=== PATIENT | female | born 2000 | race Caucasian/White ===

== ENCOUNTER 2020-12-01 01:16 | Emergency (ER) | payer MEDICAID, OTHER ==
[~2020-12-01] VITALS: Ht 162.6 cm; Wt 73.0 kg
--- NOTE | 2020-12-01 01:27 | NUR ---
MORENITA FROM [facility] ER FOR ABDOMINAL PAIN IN LLQ FOR PAST 3-4 DAYS PT STATES SHE HAS SMALL AMOUN OF BLOOD WHEN SHE URINATED. PT REPORTS FEELING BETTER IN LEFT LATERAL POSITION. G1, P0, AB0. LMP ATTACHED TO MONITORS. VSS. NADN. PT RESTING IN BED. BLANETS GIVEN. PT AMBULATED FROM [facility] TO [facility]. BED IN LOW POSITION, RAILS ENGAGED. CALL LIGHT ON LAP. WCTM
[2020-12-01] MEDS ORDERED: ACETAMINOPHEN 500 MG TABLET ONE (01:48)
[2020-12-01] MEDS ORDERED: ACETAMINOPHEN 500 MG TABLET PO ONE (02:00)
[2020-12-01] MEDS ORDERED: SODIUM CHLORIDE 0.9% 1,000ML IVBOLUS ONE (02:00)
--- NOTE | 2020-12-01 02:23 | NUR ---
PT AMBULATED TO BATHROOM AND BACK TO ROOM WITH STEADY GAIT. FRIEND AT BEDSIDE US AT BEDSIDE. NADN. VSS. BYERS
--- NOTE | 2020-12-01 02:51 | NUR ---
Patient is resting comfortably in bed. Bed in lowest, rails engaged, call light on lap. Vital Signs within normal limits. WCTM.
--- NOTE | 2020-12-01 04:12 | NUR ---
Patient is resting comfortably in bed. Bed in lowest, rails engaged, call light on lap. Vital Signs within normal limits. WCFERN. Bf a bedside. tim.
--- NOTE | 2020-12-01 04:45 | NUR ---
Patient given discharge instructions and they have confirmed that they understand the instructions. was directed to return in 48 hours for follow up. Patient ambulatory with steady gait. NAD, all questions answered appropriately, denies additional needs at this time. No personal belongings left in room after discharge.
[2020-12-01 04:46] VITALS: BP 113/67
== END 2020-12-01 04:49 | disposition home or self-care (01) ==
LOC: ED 01:46
DX: O20.0 Threatened abortion (principal); Z3A.01 Less than 8 weeks gestation of pregnancy
CPT/HCPCS: 36415; 76801; 86850; 86900; 99284; J7030

== ENCOUNTER 2020-12-02 16:28 | Emergency (ER) | payer MEDICAID ==
[~2020-12-02] VITALS: Ht 167.6 cm; Wt 65.0 kg
--- NOTE | 2020-12-02 17:13 | NUR ---
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
--- NOTE | 2020-12-02 17:44 | NUR ---
PT AMBULATORY TO ROOM 35 W/ C/O ABD PAIN/CRAMPING/VB STARTED 2 DAYS AGO. PT WENT TO [facility] AND WAS TRANSFERRED TO [facility]. PT HAD US DONE AND WAS TOLD TO COME BACK TODAY FOR REPEAT HCG AND REPEAT US. PT STATES NO CHANGES IN CRAMPING. VB NO LONGER PRESENT. PT RESTING ON GURNEY. NADN. MONITORS APPLIED. VSS. WARM BLANKET PROVIDED. CALL LIGHT IN REACH.
--- NOTE | 2020-12-02 18:47 | NUR ---
PT CHART REVIEWED AND PLACED FOR RECHECK.
[2020-12-02 19:19] VITALS: BP 109/67
--- NOTE | 2020-12-02 19:19 | NUR ---
PT RESTING ON GURNEY. NADN. DELACRUZ.
== END 2020-12-02 19:59 | disposition home or self-care (01) ==
LOC: ED 18:21
DX: O20.0 Threatened abortion (principal)
CPT/HCPCS: 36415; 76801; 84702; 99284